=== PATIENT | female | born 1975 | race Two or more races ===

== ENCOUNTER 2017-08-08 09:42 | Inpatient (IN) | payer OTHER ==
[~2017-08-08] VITALS: Ht 157.5 cm; Wt 3.2 kg
[2017-09-01] MEDS ORDERED: PRENATAL 19 TA1 EAC1 PO (10:14)
[2017-09-01] MEDS ORDERED: ZYRTEC10 MG PO (10:14)
== END 2017-09-04 12:24 | disposition home or self-care (01) | DRG 766 ==
LOC: LDR 08-30 09:39 → OB/GYN 09-01 08:51 → LDR 09-01 08:51 → OB/GYN 09-01 22:31
PROVIDERS: Obstetrics & Gynecology
PROC: 3E0P7VZ Introduction of Hormone into Female Reproductive, Via Natural or Artificial Opening (ICD-10-PCS; 2017-09-01)
PROC: 4A1HXCZ Monitoring of Products of Conception, Cardiac Rate, External Approach (ICD-10-PCS; 2017-09-01)
PROC: 10D00Z1 Extraction of Products of Conception, Low, Open Approach (ICD-10-PCS; principal; 2017-09-01 17:00)
DX: O33.9 Maternal care for disproportion, unspecified (principal); Z37.0 Single live birth; Z3A.40 40 weeks gestation of pregnancy

== ENCOUNTER 2017-09-01 07:45 | Outpatient (CLI) | payer OTHER ==
[2017-09-01] MEDS ORDERED: ZYRTEC10 MG PO (10:14)
[2017-09-01] MEDS ORDERED: PRENATAL 19 TA1 EAC1 PO (10:14)
== END 2017-09-01 09:52 | disposition still patient (30) ==
LOC: NST 07:45
DX: Z34.83 Encounter for supervision of other normal pregnancy, third trimester (principal)

== ENCOUNTER 2017-12-17 08:26 | Outpatient (CLI) | payer OTHER ==
[~2017-12-17 08:26] MED LIST: PRENATAL 19 TA1 EAC1 PO; ZYRTEC10 MG PO
== END 2017-12-17 09:06 | disposition home or self-care (01) ==
LOC: SONOGRAMA 08:26
DX: N61.0 Mastitis without abscess (principal)

== ENCOUNTER 2018-07-13 08:05 | Outpatient (CLI) | payer OTHER | END 2018-07-13 11:04 | disposition home or self-care (01) | LOC: LAB 08:05 | DX: R05 Cough (principal); R50.9 Fever, unspecified; J11.1 Influenza due to unidentified influenza virus with other respiratory manifestations ==

== ENCOUNTER → 2019-03-03 | Day surgery (SDC) | payer OTHER | END | disposition home or self-care (01) | LOC: AMB-ENDOS 10:00 | DX: K64.0 First degree hemorrhoids (principal); Z12.11 Encounter for screening for malignant neoplasm of colon ==

== ENCOUNTER 2019-06-30 13:30 | Outpatient (CLI) | payer OTHER | END 2019-06-30 13:38 | disposition home or self-care (01) | LOC: MAMO-SONO 13:30 | DX: Z12.31 Encounter for screening mammogram for malignant neoplasm of breast (principal); Z87.898 Personal history of other specified conditions; N63.10 Unspecified lump in the right breast, unspecified quadrant; N63.20 Unspecified lump in the left breast, unspecified quadrant ==

== ENCOUNTER 2019-07-03 07:32 | Outpatient (CLI) | payer OTHER | END 2019-07-03 13:34 | disposition home or self-care (01) | LOC: LAB 07:32 | DX: E04.1 Nontoxic single thyroid nodule (principal); I10 Essential (primary) hypertension; D64.89 Other specified anemias; D68.8 Other specified coagulation defects; N39.0 Urinary tract infection, site not specified; E11.00 Type 2 diabetes mellitus with hyperosmolarity without nonketotic hyperglycemic-hyperosmolar coma (NKHHC); E78.2 Mixed hyperlipidemia ==

== ENCOUNTER → 2019-07-29 | Outpatient (CLI) | payer OTHER ==
[~2019-07-29] MED LIST changes: +ALEVE220 M1 PO; +PANADOL EXTRA500 MG PO
== END | disposition home or self-care (01) ==
LOC: SONOGRAMA 11:36
DX: N60.11 Diffuse cystic mastopathy of right breast (principal); N60.12 Diffuse cystic mastopathy of left breast

== ENCOUNTER 2019-08-06 07:35 | Day surgery (SDC) | payer OTHER | END 2019-08-06 14:55 | disposition home or self-care (01) | LOC: CIR.AMB 07:35 | DX: N60.22 Fibroadenosis of left breast (principal); N60.82 Other benign mammary dysplasias of left breast; R92.0 Mammographic microcalcification found on diagnostic imaging of breast ==

== ENCOUNTER → 2020-01-31 11:33 | Outpatient (CLI) | payer OTHER | END | disposition home or self-care (01) | LOC: LAB 11:33 | PROVIDERS: ATTEND Surgery | DX: R92.0 Mammographic microcalcification found on diagnostic imaging of breast (principal); N60.11 Diffuse cystic mastopathy of right breast; N60.12 Diffuse cystic mastopathy of left breast ==